=== PATIENT | female | born 2000 | race Caucasian/White ===

== ENCOUNTER 2023-07-25 11:16 | Outpatient (CLI) | payer BC, SELFPAY ==
[2023-07-25 12:01] LABS: Basophils # 0.1 K/mm3 (0-0.2); Eosinophils # 0.1 K/mm3 (0.0-0.4); Eosinophils % 0.7 % (0.1-12.0); Hematocrit 43.7 % (37.0-47.0); Hemoglobin 14.8 g/dL (12.2-16.2); Lymphocytes # 1.8 K/mm3 (0.7-4.5); Lymphocytes % 20.4 % (10-50); Mean Corpuscular Hemoglobin 31.2 pg (27.0-31.2); Mean Corpuscular Volume 91.7 fl (81-99); Mean Platelet Volume 8.7 fl (7.4-10.4); Monocytes # 0.5 K/mm3 (0.1-1.0); Monocytes % 5.2 % (1.7-9.3); Neutrophils # 6.4 K/mm3 (1.8-7.8); Neutrophils % 72.8 % (37.0-80.0); Platelet Count 298 K/mm3 (142-424); Red Blood Count 4.76 M/mm3 (4.20-5.40); Red Cell Distribution Width 13.4 % (11.5-17.5); White Blood Count 8.8 K/mm3 (4.8-10.8)
[2023-07-26 06:14] LABS: HIV Screen 4th Generation wRfx Non Reactive (Non Reactive)
[2023-07-26 12:15] LABS: HCV Ab Non Reactive (Non Reactive); Hepatitis B Surface Antigen Negative (Negative); Rapid Plasma Reagin Ab Titer Non Reactive titer (NonRea<1:1)
[2023-07-30 05:56] LABS: Neisseria gonorrhoeae, NAA Negative (Negative)
== END 2023-07-25 23:59 | disposition home or self-care (01) ==
LOC: LAB 11:17
PROVIDERS: Visit Provider Obstetrics & Gynecology
DX: O26.891 Other specified pregnancy related conditions, first trimester (principal); Z3A.09 9 weeks gestation of pregnancy; B96.29 Other Escherichia coli [E. coli] as the cause of diseases classified elsewhere; B96.89 Other specified bacterial agents as the cause of diseases classified elsewhere; N39.0 Urinary tract infection, site not specified
CPT/HCPCS: 36415; 85025; 86593; 86703; 86762; 86850; 87086; 87340; 87491; 87591; G0432

== ENCOUNTER 2023-10-10 10:06 | Outpatient (CLI) | payer BC, SELFPAY ==
--- NOTE | 2023-10-10 10:07 | US_ITS ---
PROCEDURE: US OB /MATERNAL DETAIL CLINICAL INDICATION: US OB Complete-20 wk+ Anatomy Scan COMPARISON: No exams were available for comparison FINDINGS: Transabdominal sonographic images of the pelvis were obtained. From her established due date she is 20 weeks 0 days. Single viable intrauterine gestation. Cephalic position. Placenta: Anteriorplacenta grade 1. There is anterior placenta previa with the placenta just covering the internal os seen transvaginally. There is an average amount of fluid. MVP 4.23 cm. The cervix appears satisfactory. Closed and measuring 4.7 cm in length. Cervix is measured transvaginally. Complete survey performed and was unremarkable on the submitted images as in PACS. No discrete anomalies identified on survey imaging by technologist. Active fetus. Three-vessel cord with satisfactory umbilical cord insertion. 4- chamber heart noted. Situs, aortic arch, LVOT, RVOT, three-vessel view appear normal. Survey of brain & ventricles Unremarkable. Cerebellum, thalamus, choroid plexus, cisterna magna appear normal. Face and neck survey unremarkable. Profile, nasion, lips and nose appeared normal. Diaphragm and chest views unremarkable. Abdomen: Both kidneys noted . There is renal pelvis dilation in 1 kidney measuring 6.3 mm. Stomach and bladder noted and satisfactory. Spine: Survey of the spine satisfactory with no anomalies identified nor imaged. Cervical, thoracic, lower spine appear normal. Both arms and legs noted. Amniotic Fluid: Adequate. Measurements: Average ultrasound age 19weeks 6days. Estimated due date by ultrasound age 1102/28/2024. Estimated weight 338g BPD = 18weeks 6days HC = 19weeks 6days AC = 20weeks 3days FL = 20weeks 2days Growth Percentile= Heart Rate = 163bpm Cerebellum = 19weeks 5days Humerus = 20weeks HC/AC is 1.14 FL/BPD is 0.78 FL/AC is 0.22 IMPRESSION: 1. Viable fetus in the cephalic presentation with an anterior placenta grade 1. Transvaginally the placenta is seen to just cover the internal os. 2. The fluid is within normal limits with an MVP of 4.23 cm. 3. The anatomical scan appears normal however there is 6.3 mm of renal pelvis dilation in 1 kidney. 4. biometry is consistent with the dates. 5. Suggest repeat scan at 28 weeks to look at the placenta previa and renal pelvis dilation. Dictated by: Yves Leonard MD 10/11/2023 10:21 Yves Leonard MD in [facility] 10/11/2023 10:21
== END 2023-10-10 23:59 | disposition home or self-care (01) ==
LOC: RAD 10:07
PROVIDERS: PCP Nurse Practitioner Family; Visit Provider Obstetrics & Gynecology
DX: Z36.3 Encounter for antenatal screening for malformations (principal); Z3A.20 20 weeks gestation of pregnancy
CPT/HCPCS: 76811

== ENCOUNTER 2023-10-28 13:53 | Outpatient (CLI) | payer BC, SELFPAY ==
--- NOTE | 2023-10-28 14:05 | US_ITS ---
PROCEDURE: US OB FOLLOW UP CLINICAL INDICATION: spotting in COMPARISON: US US OB /MATERNAL DETAIL from 10/10/2023 FINDINGS: Transabdominal sonographic images of the pelvis were obtained. The following parameters are obtained: From her established due date she is 22weeks 4days Viable fetus in the breech presentation with an anterior placenta grade 1. The placenta continues to be previa and comes to the internal cervical os. It does not appear to cover the os. There are several placental lakes. The cervix measures 5.3 cm. heart rate: 153bpm bpm. Amniotic fluid: MVP 4.19 cm. No obvious anomalies evident. profile seen, stomach, bladder, four chamber heart appear normal. There is continued renal pelvis dilation measuring 6.6 mm. A three-vessel cord was not clearly seen today. IMPRESSION: 1. Viable fetus in the breech presentation with an anterior placenta grade 1. 2. The fluid is within normal limits with an MVP 4.19 cm. 3. There continues to be placenta previa with the placenta adjacent to the internal cervical os. 4. There are multiple placental lakes. 5. A three-vessel cord was not clearly seen today. 6. There continues to be renal pelvis dilation in 1 kidney of 6.6 mm. 7. Suggest repeat scan at 28 weeks to look the placenta, kidneys and cord. Dictated by: Yves Leonard MD 10/29/2023 10:09 Yvse Leonard MD in [facility] 10/29/2023 10:09
== END 2023-10-28 23:59 | disposition home or self-care (01) ==
LOC: RAD 13:55
PROVIDERS: PCP Nurse Practitioner Family; Visit Provider Obstetrics & Gynecology
DX: O26.852 Spotting complicating pregnancy, second trimester (principal); Z3A.22 22 weeks gestation of pregnancy
CPT/HCPCS: 76816

== ENCOUNTER 2023-11-18 10:57 | Outpatient (CLI) | payer BC, SELFPAY ==
[2023-11-18 11:32] LABS: Basophils % 0.3 % (0.1-2.0); Eosinophils # 0.1 K/mm3 (0.0-0.4); Eosinophils % 0.4 % (0.1-12.0); Hematocrit 37.7 % (37.0-47.0); Hemoglobin 12.3 g/dL (12.2-16.2); Lymphocytes # 1.2 K/mm3 (0.7-4.5); Mean Corpuscular HGB Conc 32.7 g/dL (31.8-35.4); Mean Corpuscular Hemoglobin 31.2 pg (27.0-31.2); Mean Corpuscular Volume 95.4 fl (81-99); Mean Platelet Volume 8.8 fl (7.4-10.4); Monocytes # 0.5 K/mm3 (0.1-1.0); Monocytes % 4.6 % (1.7-9.3); Neutrophils # 9.1 K/mm3 (1.8-7.8); Neutrophils % 83.6 % (37.0-80.0); Platelet Count 263 K/mm3 (142-424); Red Blood Count 3.95 M/mm3 (4.20-5.40); Red Cell Distribution Width 13.9 % (11.5-17.5); White Blood Count 10.8 K/mm3 (4.8-10.8)
[2023-11-18 11:39] LABS: Glucose,Fasting 80 mg/dl (74-100)
[2023-11-18 13:04] LABS: Glucose 1 Hour 85 mg/dL (74-100)
[2023-11-19 12:43] LABS: Rapid Plasma Reagin Ab Titer Non Reactive titer (NonRea<1:1)
== END 2023-11-18 23:59 | disposition home or self-care (01) ==
LOC: LAB 10:57
PROVIDERS: PCP Nurse Practitioner Family; Visit Provider Obstetrics & Gynecology
DX: Z34.90 Encounter for supervision of normal pregnancy, unspecified, unspecified trimester (principal)
CPT/HCPCS: 36415; 82951; 85025; 86593

== ENCOUNTER 2023-11-19 09:18 | Outpatient (CLI) | payer BC, SELFPAY ==
[2023-11-19] MEDS: RHO(D) IMMUNE GLOBULIN 1,500 UNIT (300MCG) SYRINGE 300 MCG IM (09:30)
[2023-11-19 09:33] VITALS: BP 131/73; PULSE 98; RESP 18; O2SAT 99
== END 2023-11-19 09:33 | disposition home or self-care (01) ==
LOC: INF 09:19
PROVIDERS: PCP Nurse Practitioner Family; Visit Provider Obstetrics & Gynecology
DX: Z29.13 Encounter for prophylactic Rho(D) immune globulin (principal)
CPT/HCPCS: 96372; J2790

== ENCOUNTER 2023-12-09 10:04 | Outpatient (CLI) | payer BC, SELFPAY ==
--- NOTE | 2023-12-09 10:04 | US_ITS ---
PROCEDURE: US OB FOLLOW UP CLINICAL INDICATION: follow up at 28weeks (placenta previa and RPD) COMPARISON: US US OB /MATERNAL DETAIL from 10/10/2023 US US OB FOLLOW UP from 10/28/2023 FINDINGS: Transabdominal sonographic images of the pelvis were obtained. The following parameters are obtained: From her established due date she is 28weeks 4days Viable fetus in the cephalic presentation with an anterior placenta grade 1. The low-lying placenta has now resolved. The cervix measures 3.7 cm transvaginally. heart rate: 163bpm bpm. BPD: 28weeks 1day, 21 percentile HC: 29weeks 5days, 49 percentile AC: 27weeks 6days, 22 percentile FL: 27weeks 6day, 17 percentile HC/AC: 1.15 FL/BPD: 0.75 FL/AC: 0.22 Growth percentile: 19 Amniotic fluid index: 6.74cm, MVP 2.61 cm No obvious anomalies evident. profile seen, stomach, bladder, kidneys, three-vessel cord, four chamber heart appear normal. There continues to be renal pelvis dilation on 1 kidney measuring 6.8 mm. IMPRESSION: 1. Viable fetus in the cephalic presentation with an anterior placenta grade 1. 2. The fluid is within normal limits with an amniotic fluid index of 6.74 cm, MVP 2.61 cm. 3. There has been good interval growth with the fetus currently 19th percentile. 4. The previously described low lying placenta has now resolved. 5. There continues to be renal pelvis dilation on 1 kidney that today measures 6.8 mm. Suggest continued follow-up and . Dictated by: Yves Leonard MD 12/09/2023 11:48 Yves Leonard MD in [facility] 12/09/2023 11:48
== END 2023-12-09 23:59 | disposition home or self-care (01) ==
LOC: RAD 10:04
PROVIDERS: PCP Nurse Practitioner Family; Visit Provider Obstetrics & Gynecology
DX: O44.00 Complete placenta previa NOS or without hemorrhage, unspecified trimester (principal); Z3A.28 28 weeks gestation of pregnancy; Z36.2 Encounter for other antenatal screening follow-up
CPT/HCPCS: 76816

== ENCOUNTER 2024-01-07 08:35 | Outpatient (CLI) | payer BC, SELFPAY ==
--- NOTE | 2024-01-07 08:35 | US_ITS ---
PROCEDURE: US OB BIOPHYSICAL PROFILE CLINICAL INDICATION: follow up on renal pelvis dilation COMPARISON: US US OB /MATERNAL DETAIL from 10/10/2023 US US OB FOLLOW UP from 10/28/2023 US US OB FOLLOW UP from 12/09/2023 FINDINGS: Transabdominal sonographic images of the uterus were obtained. From her established due date she is 32weeks 5days. The following parameters are obtained: Viable Fetus in the cephalic presentation with an anterior placenta grade 2. Placental lakes are still present. Average ultrasound age is 32weeks 5days Estimated weight 1,963g, 4 lb 5 oz Cervix measures 3.7 cm. Measurements: heart Rate = 156bpm BPD = 32weeks 2days, 29 percentile HC = 33weeks 3days, 30 percentile AC = 32weeks 3days, 38 percentile FL = 32weeks 2days, 23 percentile HC/AC is 1.06 FL/BPD is 0.77 FL/AC is 0.22 30 percentile Amniotic fluid index: 9.11cm, MVP 2.58 cm. Qualitative AFV:2 Breathing movements: 2 Gross Body Movements: 2 Tone: 2 Biophysical profile score: 8 No obvious anomalies evident.Kidneys, stomach, bladder, four-chamber heart, three-vessel cord appear normal. Right kidney has 5.3 mm-6.9 mm renal pelvis dilation IMPRESSION: 1. Viable fetus in the cephalic presentation with an anterior placenta grade 2. There continues to be placental lakes present. 2. The fluid is within normal limits with an amniotic fluid index of 9.11 cm, MVP 2.58 cm. 3. Biophysical profile is 8/8 with good breathing movement and movement seen. 4. Limited anatomical scan appears normal. 5. There is persistent mild right renal pelvis dilation measuring 5.3 mm-6.9 mm. 6. There has been good interval growth with the fetus currently 30th percentile. Dictated by: Yves Leonard MD 01/07/2024 10:49 Yves Leonard MD in [place] 01/07/2024 10:49
== END 2024-01-07 23:59 | disposition home or self-care (01) ==
LOC: RAD 08:35
PROVIDERS: PCP Nurse Practitioner Family; Visit Provider Obstetrics & Gynecology
DX: R93.41 Abnormal radiologic findings on diagnostic imaging of renal pelvis, ureter, or bladder (principal); O46.93 Antepartum hemorrhage, unspecified, third trimester; O99.213 Obesity complicating pregnancy, third trimester; E66.9 Obesity, unspecified; Z36.2 Encounter for other antenatal screening follow-up; Z3A.32 32 weeks gestation of pregnancy
CPT/HCPCS: 76816; 76819

== ENCOUNTER 2024-01-22 11:11 | Outpatient (CLI) | payer BC, SELFPAY ==
--- NOTE | 2024-01-22 11:23 | US_ITS ---
PROCEDURE: US OB BIOPHYSICAL PROFILE CLINICAL INDICATION: Leaking Fluid-US OB BPP with MARIANGEL COMPARISON: US US OB /MATERNAL DETAIL from 10/10/2023 US US OB FOLLOW UP from 10/28/2023 US US OB FOLLOW UP from 12/09/2023 US US OB BIOPHYSICAL PROFILE from 01/07/2024 FINDINGS: Transabdominal sonographic images of the uterus were obtained. From her established due date she is 34weeks 6days. The following parameters are obtained: Viable Fetus in the cephalic presentation with an anterior placenta grade 2. Placental lakes are still present. Cervix measures 3.3 cm. Measurements: heart Rate = 153bpm Amniotic fluid index: 8.21cm, MVP 3.34 cm. Qualitative AFV:2 Breathing movements: 2 Gross Body Movements: 0 Tone: 2 Biophysical profile score: 6 No obvious anomalies evident.Kidneys, profile, stomach, bladder, four-chamber heart, Appear normal. There continues to be mild renal pelvis dilation measuring 6.6 mm. A three-vessel cord is not clearly identified. More likely a 2 vessel cord is present. On review of previous ultrasounds a three-vessel cord is not clearly seen. IMPRESSION: 1. Viable fetus in the cephalic presentation with an anterior placenta grade 2. Placental lakes are still present. 2. The fluid is within normal limits with an amniotic fluid index 8.21 cm, MVP 3.34 cm. 3. Biophysical profile is 6/8 with no gross body movement seen. 4. There continues to be mild unilateral renal pelvis dilation measuring 6.6 mm. 5. Three-vessel cord is not seen today and reviewing previous ultrasounds I could not confirm that she has a three-vessel cord. Likely a 2 vessel cord is present. Dictated by: Yves Leonard MD 01/23/2024 06:46 Yves Leonard MD in [place] 01/23/2024 06:46
== END 2024-01-22 23:59 | disposition home or self-care (01) ==
LOC: RAD 11:12
PROVIDERS: PCP Nurse Practitioner Family; Visit Provider Obstetrics & Gynecology
DX: O42.913 Preterm premature rupture of membranes, unspecified as to length of time between rupture and onset of labor, third trimester (principal); O99.213 Obesity complicating pregnancy, third trimester; Z3A.34 34 weeks gestation of pregnancy
CPT/HCPCS: 76819

== ENCOUNTER 2024-01-23 12:24 | Outpatient (CLI) | payer BC, SELFPAY ==
[2024-01-23 12:30] VITALS: BP 119/68; PULSE 104; RESP 16; TEMP 36.8; O2SAT 99; BMI 37.5; BMI 38.9
== END 2024-01-23 13:20 | disposition home or self-care (01) ==
LOC: OBOUT 12:26 → OB 12:27
PROVIDERS: PCP Nurse Practitioner Family; Visit Provider Obstetrics & Gynecology
DX: O60.03 Preterm labor without delivery, third trimester (principal); Z3A.35 35 weeks gestation of pregnancy
CPT/HCPCS: G0463

== ENCOUNTER 2024-01-26 09:36 | Outpatient (CLI) | payer BC, SELFPAY ==
--- NOTE | 2024-01-26 09:39 | US_ITS ---
PROCEDURE: US OB BIOPHYSICAL PROFILE CLINICAL INDICATION: Reassurance , scored 6/8 on BPP COMPARISON: US US OB /MATERNAL DETAIL from 10/10/2023 US US OB FOLLOW UP from 10/28/2023 US US OB FOLLOW UP from 12/09/2023 US US OB BIOPHYSICAL PROFILE from 01/07/2024 US US OB BIOPHYSICAL PROFILE from 01/22/2024 FINDINGS: Transabdominal sonographic images of the uterus were obtained. From her established due date she is 35weeks 3days. The following parameters are obtained: Viable Fetus in the cephalic presentation with and anterior placenta grade 2. Placental lakes are seen. Average ultrasound age is 34weeks 6days Estimated weight 2,543g, 5 lb 10 oz. Cervix measures 3.3 cm. Measurements: heart Rate = 149bpm BPD = 34weeks 4days, 30 percentile HC = 34weeks 6days, 9 percentile AC = 35weeks 2days, 54 percent FL = 34weeks 3days, 17 percentile HC/AC is 0.99 FL/BPD is 0.78 FL/AC is 0.21 33 percentile Amniotic fluid index: 10.11cm, MVP 4.02 cm. Qualitative AFV:2 Breathing movements: 2 Gross Body Movements: 2 Tone: 2 Biophysical profile score: 8 No obvious anomalies evident.Kidneys, stomach, bladder, appear normal. There is a 2 vessel cord. IMPRESSION: 1. Viable fetus in the cephalic presentation with an anterior placenta grade 2. There are placental lakes seen. 2. The fluid is within normal limits with an amniotic fluid index of 10.11 cm, MVP 4.02 cm. 3. Biophysical profile is 8/8 with good breathing movement and movement seen. 4. There has been good interval growth with the fetus currently 33rd percentile. 5. Limited anatomic scan appears normal. 6. A 2 vessel cord is seen today. Dictated by: Yves Leonard MD 01/26/2024 11:34 Yves Leonard MD in [place] 01/26/2024 11:34
== END 2024-01-26 23:59 | disposition home or self-care (01) ==
LOC: RAD 09:36
PROVIDERS: PCP Nurse Practitioner Family; Visit Provider Obstetrics & Gynecology
DX: Z36.2 Encounter for other antenatal screening follow-up (principal); O99.213 Obesity complicating pregnancy, third trimester; Z3A.35 35 weeks gestation of pregnancy
CPT/HCPCS: 76816; 76819

== ENCOUNTER 2024-02-03 11:00 | Outpatient (CLI) | payer BC, SELFPAY | END 2024-02-03 23:59 | disposition home or self-care (01) | LOC: LAB.DROPOF 02-04 12:39 | PROVIDERS: PCP Obstetrics & Gynecology; Visit Provider Obstetrics & Gynecology | DX: Z34.90 Encounter for supervision of normal pregnancy, unspecified, unspecified trimester (principal) | CPT/HCPCS: 86403 ==

== ENCOUNTER 2024-02-03 11:08 | Outpatient (CLI) | payer BC, SELFPAY ==
[2024-02-03 11:15] VITALS: BP 144/93; PULSE 100; RESP 20; TEMP 37.2; O2SAT 99; BMI 38.1
[2024-02-03] MEDS: BETAMETHASONE ACET/PHOS 6MG/ML 5ML MDV 12 MG IM (11:59)
[2024-02-03 12:27] LABS: Bordetella Pertussis Not Detected (NotDetected); Chlamydophila Pneumoniae, PCR Not Detected (NotDetected); Coronavirus 19, PCR Not Detected (NotDetected); Coronavirus 229E Not Detected (NotDetected); Coronavirus NL63 Not Detected (NotDetected); Coronavirus OC43 Not Detected (NotDetected); Coronovirus HKU1,PCR Not Detected (NotDetected); Human Metapneumovirus Not Detected (NotDetected); Influenza A, PCR Not Detected (NotDetected); Influenza AH1, 2009 Not Detected (NotDetected); Influenza AH1, PCR Not Detected (NotDetected); Influenza AH3,PCR Not Detected (NotDetected); Influenza B, PCR Not Detected (NotDetected); Mycoplasma Pneumoniae, PCR Not Detected (NotDetected); Parainfluenza 1, PCR Not Detected (NotDetected); Parainfluenza 2, PCR Not Detected (NotDetected); Parainfluenza 3, PCR Not Detected (NotDetected); Parainfluenza 4, PCR Not Detected (NotDetected); Respiratory Syncytial Virus Not Detected (NotDetected)
[2024-02-03 12:55] LABS: Strep Scrn Group A (Rapid) Negative (Negative)
[2024-02-03 19:45] LABS: Adenovirus,PCR Detected (NotDetected); Rhinovirus/Enterovirus Detected (NotDetected)
== END 2024-02-03 13:10 | disposition home or self-care (01) ==
LOC: OBOUT 11:10 → OB 11:10
PROVIDERS: Visit Provider Obstetrics & Gynecology
DX: O60.03 Preterm labor without delivery, third trimester (principal); Z3A.36 36 weeks gestation of pregnancy
CPT/HCPCS: 87265; 87430; 87486; 87581; 87632; 87635; G0463; J0702

== ENCOUNTER 2024-02-04 11:14 | Outpatient (CLI) | payer BC, SELFPAY ==
[2024-02-04 11:42] VITALS: BP 127/75; PULSE 112; RESP 18; TEMP 37.4; O2SAT 97; BMI 38.0
[2024-02-04] MEDS: BETAMETHASONE ACET/PHOS 6MG/ML 5ML MDV 12 MG IM (11:56)
== END 2024-02-04 12:23 | disposition home or self-care (01) ==
LOC: OBOUT 11:17 → OB 11:17
PROVIDERS: Visit Provider Nurse Practitioner Obstetrics & Gynecology
DX: O60.03 Preterm labor without delivery, third trimester (principal); Z3A.36 36 weeks gestation of pregnancy
CPT/HCPCS: G0463; J0702

== ENCOUNTER 2024-02-07 06:41 | Inpatient (IN) | payer BC, SELFPAY ==
[2024-02-07 05:53] VITALS: BMI 38.1
[2024-02-07 06:18] LABS: Microscopic, Urine URINE MICROSCOPIC (MICROSCOPIC)
[2024-02-07 06:21] LABS: Appearance,Urine CLEAR (Clear); Bilirubin,Urine Negative (Negative); Blood, Urine Negative (Negative); Color,Urine YELLOW (Yellow); Glucose,Urine (UA) Negative (Negative); Ketones,Urine 1+ (Negative); Leukocyte Esterase,Urine Negative (Negative); Nitrate,Urine Negative (Negative); PH,Urine 6.5 (5.0-8.5); Protein,Urine Negative (Negative); Urobilinogen,Urine 0.2 EU/dl (0.2)
[2024-02-07 06:30] LABS: Fetal Membrane Rupture (Rapid) Positive (Negative)
[2024-02-07 06:33] VITALS: BP 144/83; PULSE 93; RESP 16; TEMP 36.6; O2SAT 100; BMI 38.1
[2024-02-07 06:33] LABS: Bacteria,Urine 1+ /lpf; RBC,Urine Occasional #/hpf (0-3)
[2024-02-07 06:38] LABS: Barbiturates Screen,Urine Negative ng/ml (<200)
[2024-02-07 06:39] LABS: Amphetamine/Metha Screen,Urine Negative ng/ml (<1000); Benzodiazepines Screen,Urine Negative ng/ml (<200)
[2024-02-07 06:40] LABS: Cocaine Screen,Urine Negative ng/ml (<300)
[2024-02-07 06:41] LABS: Cannabinoid Screen,Urine Negative ng/ml (<50); Methadone Screen,Urine Negative ng/ml (<300)
[2024-02-07 06:42] LABS: Opiate Screen,Urine Negative ng/ml (<300)
[2024-02-07 06:43] LABS: Phencyclidine Screen,Urine Negative ng/ml (<25)
[2024-02-07 08:15] VITALS: BP 132/73; PULSE 110; RESP 16; TEMP 37.1; O2SAT 98
[2024-02-07 08:39] LABS: Basophils % 0.4 % (0.1-2.0); Eosinophils % 0.3 % (0.1-12.0); Hematocrit 35.9 % (37.0-47.0); Hemoglobin 12.4 g/dL (12.2-16.2); Lymphocytes # 1.8 K/mm3 (0.7-4.5); Lymphocytes % 15.8 % (10-50); Mean Corpuscular HGB Conc 34.5 g/dL (31.8-35.4); Mean Corpuscular Hemoglobin 31.5 pg (27.0-31.2); Mean Corpuscular Volume 91.3 fl (81-99); Mean Platelet Volume 9.4 fl (7.4-10.4); Monocytes # 0.7 K/mm3 (0.1-1.0); Monocytes % 6.4 % (1.7-9.3); Neutrophils # 8.6 K/mm3 (1.8-7.8); Neutrophils % 77.1 % (37.0-80.0); Platelet Count 242 K/mm3 (142-424); Red Blood Count 3.93 M/mm3 (4.20-5.40); Red Cell Distribution Width 14.2 % (11.5-17.5); White Blood Count 11.1 K/mm3 (4.8-10.8)
[2024-02-07] MEDS: LACTATED RINGERS 1000ML 500 ML 999 ML IV (08:40)
[2024-02-07 08:43] LABS: Albumin Level 3.5 g/dl (3.5-5.0); Chloride 111 mmol/L (98-107); Sodium 137 mmol/L (136-145)
[2024-02-07 08:44] LABS: Potassium 3.2 mmoL/L (3.5-5.1)
[2024-02-07 08:46] LABS: Alanine Aminotransferase 21 U/L (12-78); Albumin/Globulin Ratio 1.1 (1.1-1.8); Alkaline Phosphatase 148 U/L (38-126); Anion Gap 10.2 mEq/L (5-15); Aspartate Amino Transferase 24 U/L (14-36); Bilirubin,Total 0.5 mg/dl (0.2-1.3); Blood Urea Nitrogen 3 mg/dl (7-17); Calcium 9.1 mg/dl (8.4-10.2); Carbon Dioxide 19 mmol/L (22.0-30.0); Creatinine Clearance Estimated 325 mL/min (50-200); Estimated Glomerular Filt Rate 149 ml/min (>60); GFR (African American) 180 ML/MIN (>60); Globulin 3.1 g/dL (1.3-3.2); Glucose 111 mg/dl (74-100); Total Protein,Serum 6.6 g/dl (6.3-8.2)
[2024-02-07] MEDS: miSOPROStol 100MCG TABLET 50 MCG PO (09:16)
--- NOTE | 2024-02-07 09:24 | HMH.PHAINT1 ---
Pharmacy Intervention Comments: MEDICATION RECONCILIATION COMPLETED ON PATIENT USING EXTERNAL FILL HISTORY FROM PHARMACY. -MANNY COSBY, GLORIAD
--- NOTE | 2024-02-07 11:15 | P.HP_ITS ---
OB - H&P: HPI Antepartum History of Present Illness Chief complaint: leakage of fluid History of present illness: Mrs Nabil House is a 24 yo at 37w1d who presents to [facility] L&D with complaint of leakage of fluid that started at 0530 this morning. She states she got up with her as we preparing to go hunting and felt at pop followed by leakage of fluid. No contractions or vaginal bleeding. Baby is active. She has had good care. She was scheduled for induction of labor on 02/08 for gestational hypertension. BP today mild range and normotensive. She denies headaches and vision changes. Amnisure was positive. History of Present Criteria for establishing EDC:: LMP confirmed by 1st trimester US care: good care Ultrasounds: normal mid trimester US Labs Blood type: O (-) negative Rubella: immune RPR/VDRL: nonreactive GBS status: negative HBsAG: negative [facility] Disclaimer: The information contained in this section may have been updated after the patient was seen, as this information can be updated by other users. Medical History (Updated 02/07/24 @ 11:23 by Colette Dodson DO) PROM (premature rupture of membranes) Vaginal bleeding during , antepartum Maternal obesity affecting , antepartum Torn ACL Surgical History History of knee surgery Family History Other Heart attack Thyroid disorder Social History (Updated 02/07/24 @ 10:05 by Christina Perez RN) Smoking Status: Never smoker alcohol intake: current alcohol intake frequency: a few times a month substance use type: denies use current occupational status: employed Travel in the last 8 weeks: None household members: other housing: house Other Medical History Have you received the Flu Vaccine for this season: No Have you received the Pneumonia Vaccine: No Review of Systems Review of Systems Review of systems:: pertinent systems reviewed and negative unless documented below Meds Home Medications and Allergies Home Medications ?Medication ?Instructions ?Recorded ?Confirmed ?Type vits no.126-ferrous fum 1 tab PO DAILY 07/25/23 02/07/24 History 28 mg iron-folic acid 800 mcg tablet (Classic ) labetalol 200 mg tablet 200 mg PO BID #60 tabs 01/24/24 02/07/24 Rx New Prescriptions to Start Prescriptions: Allergies Allergy/AdvReac Type Severity Reaction Status Date / Time No Known Allergies Allergy Verified 02/03/24 10:28 OB - H&P: Exam Physical Exam Vital signs: Temp Pulse Resp BP Pulse Ox O2 Del Method 98.7 F 110 H 16 132/73 98 Room Air 02/07/24 08:15 02/07/24 08:15 02/07/24 08:15 02/07/24 08:15 02/07/24 08:15 02/07/24 08:15 Constitutional no acute distress and cooperative Routine HEENT Exam Head: Present normocephalic and atraumatic Eye: Absent conjunctivae pink ENT: Present mucous membranes moist Routine Neck Exam Present full ROM Routine Respiratory Exam Present CTA bilaterally and normal respiratory effort Routine Cardiovascular Exam Present RRR Routine Abdominal Exam Present soft (Gravid); Absent tenderness Routine Rectal Exam Patient deferred: visual exam Routine Exam External: Present normal urethra appearance; Absent erythema, tenderness, lesions or lacerations Routine Extremities Exam Present edema and full ROM; Absent calf tenderness Routine Neurological Exam Present alert, moving all extremities and normal speech Routine Psychiatric Exam Present normal affect and cooperative Detailed Labor and Delivery Exam Dilation (cm): 0 Cervix position: posterior station: -3 Consistency: firm Cervical ripeness score: 0 Membranes: spontaneously ruptured Baseline heart rate: 155 monitor accelerations: Present monitor 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5) Ur Specific [place] 1.020 (1.005-1.030) Urine Protein Negative (Negative) Urine Glucose (UA) Negative (Negative) OB - A/P Antepartum (1) PROM (premature rupture of membranes): Status: Acute (2) Gestational hypertension: Status: Acute (3) Maternal obesity affecting , antepartum: Status: Acute Additional Plan Planning to breastfeed?: No Additional Information:: Admit to L&D for PROM. Amnisure positive. SVE closed/thick/high GBS negative Cytotec 50 mcg q 6 hours PRN cervical change with max of 3 doses NST category 1, reactive Discussed possible two day induction of labor Close monitoring
[2024-02-07] MEDS: BUTORPHANOL TARTRATE 1 MG/ML VIAL IV ×2 (14:31→17:05)
[2024-02-07] MEDS: OXYTOCIN/RINGERS LACTATE 30 UNITS/500 ML BAG IV (16:38)
[2024-02-07] MEDS: DEXTROSE 5%-LACTATED RINGERS 1,000 ML 125 ML IV (16:38)
--- NOTE | 2024-02-07 18:29 | P.PNANES_ITS ---
[facility] Disclaimer: The information contained in this section may have been updated after the patient was seen, as this information can be updated by other users. Medical History (Updated 02/07/24 @ 11:23 by Colette Dodson DO) PROM (premature rupture of membranes) Vaginal bleeding during , antepartum Maternal obesity affecting , antepartum Torn ACL Surgical History History of knee surgery Family History Other Heart attack Thyroid disorder Social History (Updated 02/07/24 @ 10:05 by Christina Perez RN) Smoking Status: Never smoker alcohol intake: current alcohol intake frequency: a few times a month substance use type: denies use current occupational status: employed Travel in the last 8 weeks: None household members: other housing: house [facility] Anesthesia Checklist Patient Identification Patient Identification: Verbal (Name & ) Structural Data Admitted From: Inpatient Planned Operative Procedure/s: labor epidural Consent for Planned Operative Procedure(s) Verified: Yes Airway Assessment Mallampati Score:: Class II C-Spine Mobility Assessed: Yes TMJ Mobility Assessed: Yes Dentition: Good Dentition Neurological Assessment Level of Consciousness: Awake, Alert and Appropriate Anesthesia Plan Anesthesia Risk discussed: Yes Anesthesia Plan: Verified ASA Class: II Anesthesia Type: Epidural
[2024-02-07 20:18] VITALS: BP 115/58; PULSE 98; RESP 17; TEMP 37; O2SAT 98
--- NOTE | 2024-02-07 20:29 | P.PN_ITS ---
Labor Note Subjective: Date: 02/07/24 Time: 20:29 regular contraction Objective: NST:: Reactive Contractions:: every 2-3 minutes Cervical Dilation:: 6 Effacement:: 90% Station: -1 Membranes: spontaneously ruptured Fetus: Monitoring?: Yes monitoring type:: External Assessment: Labor progressing?: Yes Problems: (1) PROM (premature rupture of membranes): Qualifiers: PROM onset of labor timing: onset of labor within 24 hours of rupture PROM gestational age: unspecified gestational age Qualified Code(s): O42.00 - Premature rupture of membranes, onset of labor within 24 hours of rupture, unspecified weeks of gestation Category: Medical Code(s): O42.90 - Premature rupture of membranes, unspecified as to length of time between rupture and onset of labor, unspecified weeks of gestation (2) Gestational hypertension: Qualifiers: Trimester: third trimester Qualified Code(s): O13.3 - Gestational [-induced] hypertension without significant proteinuria, third trimester Category: Medical Code(s): O13.9 - Gestational [-induced] hypertension without significant proteinuria, unspecified trimester (3) Maternal obesity affecting , antepartum: Qualifiers: Obesity type affecting : unspecified obesity Qualified Code(s) : O99.210 - Obesity complicating , unspecified trimester Category: Medical Code(s): O99.210 - Obesity complicating , unspecified trimester Plan: Anesthesia for epidural?: Yes Continue to monitor?: Yes
[2024-02-07] MEDS: OXYTOCIN/RINGERS LACTATE 30 UNITS/500 ML BAG 999 UNITS IV (23:03)
[2024-02-07] MEDS: OXYTOCIN/RINGERS LACTATE 30 UNITS/500 ML BAG 40 UNITS IV (23:18)
--- NOTE | 2024-02-07 23:25 | EXP.DN ---
Delivery Note Delivery Date:: 02/07/24 Delivery Time:: 23:00 Anesthesia Type: Epidural Was labor medically induced?: No Gestational age (weeks): 37 Infant delivered prior to 39 weeks?: Yes Justification for early elective delivery:: Premature ROM Gender: Male at 1 minute: 7 at 5 minutes: 8 Delivery Procedure:: Mom complete with epidural but epidural was not providing adequate pain control. Pushed for approximately 51 minutes. Head delivered spontaneously over intact perineum in OA position. No nuchal cord. Anterior shoulder delivered with gentle downward pressure. Posterior shoulder and remainder of body delivered spontaneously. Baby placed on maternal abdomen, mouth and nares bulb suctioned, warmed/dried and stimulated. Delayed cord clamping was performed for 60 seconds. Cord was clamped and cut by father of baby. Cord blood was obtained. Placenta delivered spontaneously and intact. Placenta will be sent to pathology for review. Posterior vaginal wall laceration with posterior hymenal tear repaired with 3-0 Vicryl. Hemostasis noted. Mom requested that baby be taken to the warmer during vaginal repair. Mom and baby were doing well after delivery. Live male baby (baby's name is George Kaba) APGARs 7 (1 min), 8 (5 min) EBL 300 mL Laceration:: vaginal Placental Delivery Description: Spontaneous
[2024-02-08] MEDS: KETOROLAC 30MG/ML VIAL 30 MG IV (00:12)
[2024-02-08 04:10] VITALS: BP 117/61; PULSE 90; RESP 16; TEMP 37.1; O2SAT 98
[2024-02-08 07:25] LABS: Eosinophils % 0.2 % (0.1-12.0)
[2024-02-08 07:28] LABS: Basophils % 0.2 % (0.1-2.0); Lymphocytes # 1.6 K/mm3 (0.7-4.5); Lymphocytes % 10.4 % (10-50); Mean Corpuscular HGB Conc 36.4 g/dL (31.8-35.4); Mean Corpuscular Hemoglobin 32.3 pg (27.0-31.2); Mean Corpuscular Volume 88.7 fl (81-99); Mean Platelet Volume 9.7 fl (7.4-10.4); Monocytes # 1.1 K/mm3 (0.1-1.0); Monocytes % 6.9 % (1.7-9.3); Neutrophils % 82.4 % (37.0-80.0); Platelet Count 205 K/mm3 (142-424); Red Blood Count 3.16 M/mm3 (4.20-5.40); Red Cell Distribution Width 14.1 % (11.5-17.5); White Blood Count 15.7 K/mm3 (4.8-10.8)
[2024-02-08 07:30] LABS: Hemoglobin 10.2 g/dL (12.2-16.2); MANUAL DIFFERENTIAL MANUAL DIFFERENTIAL (MANUAL DIFF)
[2024-02-08 07:43] LABS: Lymphocytes % 8 % (10-50); Monocytes % 9 % (2-9); Neutrophils % 83 % (42-76); Platelet Estimate Normal; RBC Morphology Normal; Total Cells Counted 100
[2024-02-08 08:21] LABS: Rapid Plasma Reagin Ab Titer Non Reactive titer (NonRea<1:1)
--- NOTE | 2024-02-08 11:01 | EXP.ACUTE.PN ---
Subjective *Date: 02/08/24 *Time: 11:01 Interval history: PPD # 1 s/p Feeling well. Pain controlled. Formula feeding. Lochia is appropriate. Voiding without difficulty and passing flatus. Tolerating regular diet. Denies fever/chills, chest pain and shortness of breath. No headaches, vision changes, lightheadedness/dizziness. No lower extremity swelling. Ambulating well ad tirso. Medical Exam Vital signs and Labs for Last 24 Hours: Vital Signs Temp Pulse Resp BP Pulse Ox O2 Del Method 02/08/24 04:10 98.7 F 90 16 117/61 98 Room Air 02/07/24 20:18 98.6 F 98 H 17 115/58 L 98 Room Air Laboratory Results - last 24 hr 02/07/24 08:09: RPR Titer Non reactive 02/08/24 07:12: WBC 15.7 H D, RBC 3.16 L, Hgb 10.2 L D, Hct 28.0 L, MCV 88.7, MCH 32.3 H, MCHC 36.4 H, RDW 14.1, Plt Count 205, MPV 9.7, Neut % (Auto) 82.4 H, Lymph % (Auto) 10.4, [place] % (Auto) 6.9, Eos % (Auto) 0.2, Baso % (Auto) 0.2, Neut # (Auto) 13.0 H, Lymph # (Auto) 1.6, [place] # (Auto) 1.1 H, Eos # (Auto) 0.0, Baso # (Auto) 0.0, Total Counted 100, Neutrophils % (Manual) 83 H, Lymphocytes % (Manual) 8 L, Monocytes % (Manual) 9, Platelet Estimate Normal, RBC Morphology Normal, Screen Negative, Baby's Rh Status Positive I & O for Labs for Last 24 Hours: Intake & Output 02/05/24 02/06/24 02/07/24 02/08/24 23:59 23:59 23:59 22:59 Weight 266 lb Head: Present atraumatic and normocephalic ENT: Present normal exam Neck: Present full ROM Respiratory: Present CTA bilaterally and normal respiratory effort Cardiac: Present Reg Rate and Rhythm GI: Present soft; Absent distention or tenderness Comments:: Uterine fundus firm and below umbilicus Rectal (female): Present deferred (female): Present deferred Extremities: Present full ROM; Absent edema or calf tenderness Neuro: Present alert, awake and moves all extremities Assessment and Plan *Assessment and plan (1) Status post normal vaginal delivery: Status: Acute Category: Medical (2) PROM (premature rupture of membranes): Status: Acute Qualifiers: PROM onset of labor timing: onset of labor within 24 hours of rupture PROM gestational age: unspecified gestational age Qualified Code(s): O42.00 - Premature rupture of membranes, onset of labor within 24 hours of rupture, unspecified weeks of gestation Category: Medical Code(s): O42.90 - Premature rupture of membranes, unspecified as to length of time between rupture and onset of labor, unspecified weeks of gestation (3) Gestational hypertension: Status: Acute Qualifiers: Trimester: third trimester Qualified Code(s): O13.3 - Gestational [-induced] hypertension without significant proteinuria, third trimester Category: Medical Code(s): O13.9 - Gestational [-induced] hypertension without significant proteinuria, unspecified trimester (4) Maternal obesity affecting , antepartum: Status: Acute Qualifiers: Obesity type affecting : unspecified obesity Qualified Code(s): O99.210 - Obesity complicating , unspecified trimester Category: Medical Code(s): O99.210 - Obesity complicating , unspecified trimester (5) Acute blood loss anemia: Status: Acute Category: Medical Code(s): D62 - Acute posthemorrhagic anemia Plan Continue routine care Encouraged increased ambulation AM Hgb 10.2 Plan d/c home PPD #2
[2024-02-08] MEDS: IBUPROFEN 400 MG TABLET 800 MG PO (12:27)
[2024-02-09 07:34] VITALS: BP 98/67; PULSE 91; RESP 18; TEMP 37.2; O2SAT 99
--- NOTE | 2024-02-09 10:55 | P.DS_ITS ---
General Admission date:: 02/07/24 Discharge date: 02/09/24 HPI HPI HPI: PPD # 2 s/p Feeling well. Pain controlled. Formula feeding. Lochia is appropriate. Voiding without difficulty and passing flatus. Tolerating regular diet. Denies fever/chills, chest pain and shortness of breath. No headaches, vision changes, lightheadedness/dizziness. She admits to bilateral lower extremity swelling. No calf pain. Ambulating well ad tirso. Hospital Course Hospital Course Hospital Course: Mrs Nabil House is a 24 yo at 37w1d admitted to [facility] L&D for PROM. Leakage of fluid started the morning of 02/07/24. She states she got up with her as he was preparing to go hunting and felt at pop followed by leakage of fluid. No contractions or vaginal bleeding. Baby is active. She had good care. She was scheduled for induction of labor on 02/08 for gestational hypertension. BP today mild range and normotensive. She denies headaches and vision changes. Amnisure was positive. She underwent augmentation of labor with Cytotec 50 mcg PO x 1 dose followed by Pitocin. She had a normal spontaneous vaginal delivery on 02/07/24 at 2300. She delivered a live male baby, George Kaba, weighing 7 lb 2 oz. APGARs 7 (1 min), 8 (5 min). EBL 300 mL. She did well . Pain controlled. Formula feeding. Light lochia. Voiding without difficulty and passing flatus. Tolerating regular diet. Denies fever/chills, chest pain and shortness of breath. No headaches, dizziness/lightheadedness or vision changes. Vital signs stable, afebrile. Heart regular rate and rhythm. Lungs clear to auscultation. Abdomen soft, nontender. She had +1 bilateral lower extremity swelling. No calf tenderness to palpation. Ambulating well ad tirso. Normal hospital course. She was discharged to home on PPD # 2 with instructions to follow-up in the office in 2 weeks or sooner if needed. Exam Data for Last 24 hours Vital signs and Labs for Last 24 Hours: Temp Pulse Resp BP Pulse Ox O2 Del Method 98.9 F 91 H 18 98/67 L 99 Room Air 02/09/24 07:34 02/09/24 07:34 02/09/24 07:34 02/09/24 07:34 02/09/24 07:34 02/09/24 07:34 I & O for Last 24 hours: Intake & Output 02/06/24 02/07/24 02/08/24 02/09/24 23:59 23:59 22:59 23:59 Weight 266 lb Constitutional Constitutional: no acute distress and cooperative *Routine HEENT Exam Head: Present normocephalic and atraumatic Eye: Absent conjunctivae pink ENT: Present mucous membranes moist *Routine Neck Exam Neck: Present full ROM *Routine Respiratory Exam Respiratory: Present CTA bilaterally and normal respiratory effort *Routine Cardiovascular Exam Cardiovascular: Present RRR *Routine Abdominal Exam Abdominal: Present soft; Absent tenderness or distended Comments: Uterine fundus firm and below umbilicus *Routine Rectal Exam Patient deferred: visual exam *Routine Exam Patient deferred: external exam *Routine Extremities Exam Extremities: Present edema (+1 bilateral lower extremity swelling) and full ROM; Absent calf tenderness *Routine Neurological Exam Neurological: Present alert, moving all extremities and normal speech Routine Psychiatric Exam Psychiatric: Present normal affect and cooperative DS: Diagnosis Discharge Diagnosis (1) Status post normal vaginal delivery: Status: Acute (2) PROM (premature rupture of membranes): Status: Acute Code(s): O42.90 - Premature rupture of membranes, unspecified as to length of time between rupture and onset of labor, unspecified weeks of gestation Qualifiers: PROM gestational age: unspecified gestational age PROM onset of labor timing: onset of labor within 24 hours of rupture Qualified Code(s): O42.00 - Premature rupture of membranes, onset of labor within 24 hours of rupture, unspecified weeks of gestation (3) Gestational hypertension: Status: Acute Code(s): O13.9 - Gestational [-induced] hypertension without significant proteinuria, unspecified trimester Qualifiers: Trimester: third trimester Qualified Code(s): O13.3 - Gestational [-induced] hypertension without significant proteinuria, third trimester (4) Maternal obesity affecting , antepartum: Status: Acute Code(s): O99.210 - Obesity complicating , unspecified trimester Qualifiers: Obesity type affecting : unspecified obesity Qualified Code(s): O99.210 - Obesity complicating , unspecified trimester (5) Acute blood loss anemia: Status: Acute Code(s): D62 - Acute posthemorrhagic anemia Meds Home Medications and Allergies Home Medications ?Medication ?Instructions ?Recorded ?Confirmed ?Type vits no.126-ferrous fum 1 tab PO DAILY 07/25/23 02/07/24 History 28 mg iron-folic acid 800 mcg tablet (Classic ) ibuprofen 800 mg tablet 800 mg PO Q8H PRN pain #20 tabs 02/09/24 Rx New Prescriptions to Start Prescriptions: Colette Varma Allergies Allergy/AdvReac Type Severity Reaction Status Date / Time No Known Allergies Allergy Verified 02/03/24 10:28 Discharge Plan Disposition Patient Disposition: Home, Self-Care Condition: Good Discharge Order Discharge Orders: Discharge Order (Routine); Ordered 02/09/24 Ordered By: Colette Dodson Follow up Plan Follow up with: Christina Young DO [Staff Physician] - 2 weeks Colette Dodson DO [Staff Physician] - Enter time for follow up Prescriptions/Medication Reconciliation: New ibuprofen 800 mg tablet 800 mg PO Q8H PRN (Reason: pain) Qty: 20 0RF Continued Classic 28 mg iron- 800 mcg tablet 1 tab PO DAILY Discontinued labetalol 200 mg tablet 200 mg PO BID Qty: 60 2RF Problem Reconciliation Problems Reviewed?: Yes Patient Discharge Instructions ACTIVITY: Limited activity DIET: continue same diet and regular diet Additional Instructions: Congratulations!! Discharge: 1. Take 800 mg Ibuprofen every 8 hours as needed for pain. You can also take 500-1000 mg of Tylenol in between doses, every 6-8 hours. 2. Nothing in the vagina for 6 weeks - no intercourse, douching or tampons. No tub baths/hot tubs or swimming pools 3. Reasons to return to L&D or call On-Call doctor - fever (greater than 100.4) - heavy vaginal bleeding (soaking through 1 pad in less than 2 hours) - vaginal discharge (malodorous and/or purulent) - severe headaches not resolved by medication or rest and leg tenderness/edema 4. depression/blues - Normal to feel anxious/overwhelmed for first 2 weeks - Talk to your doctor if: severe anxiety, trouble bonding with baby, withdrawing from other family members, thoughts of harming yourself or others Colette Dodson DO [facility] [phone] Patient Instructions: Depression, Labor and Delivery, Vaginal , Hemorrhage, DI for Pre-eclampsia Print Language: Sammarinese Providers Primary Care Provider: Denton Almodovar Admit Provider: Colette Dodson Attending Provider: Colette Dodson
[2024-02-09] MEDS: RHO(D) IMMUNE GLOBULIN 1,500 UNIT (300MCG) SYRINGE 300 MCG IM (11:12)
[2024-02-09] MEDS: ACETAMINOPHEN 500MG TAB 1000 MG PO (14:08)
== END 2024-02-09 15:05 | disposition home or self-care (01) | DRG 806 ==
LOC: OBOUT 06:42 → OB 06:42
PROVIDERS: Admitting Provider Obstetrics & Gynecology; PCP Nurse Practitioner Family; Visit Provider Obstetrics & Gynecology
DX: O42.02 Full-term premature rupture of membranes, onset of labor within 24 hours of rupture (principal); D62 Acute posthemorrhagic anemia; Z37.0 Single live birth; O70.0 First degree perineal laceration during delivery; O13.4 Gestational [pregnancy-induced] hypertension without significant proteinuria, complicating childbirth; O99.214 Obesity complicating childbirth; Z3A.37 37 weeks gestation of pregnancy; E66.01 Morbid (severe) obesity due to excess calories; O90.81 Anemia of the puerperium; O26.893 Other specified pregnancy related conditions, third trimester
CPT/HCPCS: 59025; 80053; 80307; 81001; 84112; 85007; 85025; 85461; 86593; 86850; J0595; J1885; J2790; J3010; J7120